=== PATIENT | male | born 1965 | race Caucasian/White ===

== ENCOUNTER 2017-05-05 19:24 | Emergency (ER) | payer OTHER ==
[~2017-05-05] VITALS: Ht 190.5 cm; Wt 122.5 kg
--- NOTE | ~2017-05-05 | CT4 ---
[facility] A Service of [facility] RADIOLOGY TEXT RESULTS PATIENT: ROHINI MURPHY LOCATION: SED : 69 UNIT #: [id number] AGE: [address]: Sherin Cox SEX: M ORDER DR: [id number] [address] [address] [id number] MR#: [id number] #: [id number] NAME: ROHINI MURPHY : 1965 SEX: M STUDY DATE/TIME: 05/05/2017 22:33 UNIT: SED ROOM: STUDY DESCRIPTION: CT Abd and Pelv Wo Cont Attending Physician: Sherin Cox Pa-C Ordering Physician: Staff Doctor Not On [facility] RE[facility] This report is preliminary unless electronic signature is present. EXAM CT abdomen and pelvis, noncontrast, HISTORY 52-year-old male in the ED complaining of 3-day history of mid abdomen pain. TECHNIQUE CT examination of the abdomen and pelvis was performed without oral or IV contrast, as requested. FINDINGS ABDOMEN FINDINGS: Multiple small gallstones are present within a nondistended gallbladder. There is no intrahepatic or extrahepatic bile duct dilatation. Liver, pancreas and spleen are normal in size and appearance without contrast. Minimal sigmoid diverticulosis. Small bowel and colon are otherwise normal in caliber and appearance, as imaged. Normal appendix. No radiopaque renal or urinary tract stone material. No evidence of urinary obstruction. Two or three tiny low-attenuation left renal lesions most likely representing cysts but incompletely characterized on this noncontrast study. Normal-caliber abdominal aorta. PELVIS FINDINGS: Urinary bladder and rectum are within normal limits. Mildly enlarged prostate. Tiny left inguinal hernia containing pelvic fat. Limited lung base images show no active disease in the lower chest. IMPRESSION 1. No acute abnormality within the abdomen or pelvis. 2. Tiny gallstones within nondistended gallbladder. No bile duct [facility] A Service of [facility] RADIOLOGY TEXT RESULTS PATIENT: ROHINI MURPHY LOCATION: SED : 69 UNIT #: [id number] AGE: [address]: Sherin Cox SEX: M ORDER DR: dilatation. 3. Minimal sigmoid diverticulosis. Dictated by... Tomasz Hickman M.D. THIS IS AN ELECTRONICALLY VERIFIED REPORT Tomasz Hickman M.D. at 05/06/2017 5:58 AM NANETTE/ana maría TD: 05/06/2017 03:39 JOB #: [id number] MEDICAL IMAGING REPORT Page 1 of 1
--- NOTE | ~2017-05-05 | EKG ---
PATIENT: ROHINI MURPHY UNIT #: [id number] Ventricular Rate: 91 BPM Atrial Rate: 91 BPM P-R Interval: 166 ms QRS Duration: 84 ms Q-T Interval: 400 ms QTC Calculation(Bezet): 492 ms P [place]: 4 degrees Calculated R [place]: -6 degrees Calculated T [place]: 96 degrees Diagnosis Line: Normal sinus rhythm Diagnosis Line: Minimal voltage criteria for LVH, may be normal Diagnosis Line: variant Diagnosis Line: Nonspecific ST and T wave abnormality Diagnosis Line: Prolonged QT Diagnosis Line: Abnormal ECG Diagnosis Line: When compared with ECG of 08-OCT-2014 02:27, Diagnosis Line: Minimal criteria for Anteroseptal infarct are no Diagnosis Line: longer Present Diagnosis Line: Nonspecific T wave abnormality now evident in Diagnosis Line: Lateral leads Diagnosis Line: Confirmed by DIANA CUMMINGS MD ([id number]) on Diagnosis Line: 05/08/2017 4:04:17 PM INTERPRETING MD: EMILIANO ALVAREZ
[~2017-05-05 19:24] MED LIST: BP MED PO; GLUCOTROL XL10 MG PO; LISINOPRIL PO; METFORMIN PO; NORVASC PO; PROMETHAZINE/CODEINE PO; ZITHROMAX PO
[2017-05-05] MEDS ORDERED: APRESOLINE (19:29)
[2017-05-05] MEDS ORDERED: BASAGLAR K100 UNIT/1 (19:30)
[2017-05-05] MEDS ORDERED: HUMULIN 70100 UNITS/ (19:30)
[2017-05-05 20:19] LABS: BASOPHIL% 0.2 % (0-2.5); EOSINOPHIL# 0.3 X10e3 (0-0.7); EOSINOPHIL% 4.2 % (0.0-7.0); HEMATOCRIT 36.1 % (38.0-50.0); HEMOGLOBIN 12.4 gm/dL (13.0-16.0); LYMPHOCYTE# 1.6 X10e3 (1.0-3.5); LYMPHOCYTE% 22.7 % (17.0-45.0); MEAN CELL VOLUME 86.4 FL (83-96); MEAN CORPUSCULAR HEMOGLOBIN 29.5 PG (28-34); MEAN CORPUSCULAR HGB CONC 34.2 g/dL (30-36); MEAN PLATELET VOLUME 9.5 FL (6.5-11.5); MONOCYTE# 0.5 X10e3 (0-1.0); MONOCYTE% 7.4 % (3.0-12.0); NEUTROPHIL# 4.7 X10e3 (1.5-7.1); NEUTROPHIL% 65.5 % (40-75); PLATELET COUNT 162 X10e3 (140-420); RED BLOOD COUNT 4.19 X10e (3.90-5.60); RED CELL DISTRIBUTION WIDTH 14.4 % (11.0-15.5); WHITE BLOOD COUNT 7.1 X10e3 (4.0-10.5)
[2017-05-05 20:20] LABS: DIFF IND NO
[2017-05-05 20:37] LABS: ALBUMIN SERUM 3.1 g/dL (3.5-5.0); ALKALINE PHOSPHATASE 55 U/L (32-92); ALT (SGPT) 22 U/L (10-40); AST (SGOT) 20 U/L (10-42); BILIRUBIN,TOTAL 0.4 mg/dL (0.2-2.0); BLOOD UREA NITROGEN 33 mg/dL (9-23); BUN/CREATININE RATIO 7.67; CALCIUM SERUM 8.6 mg/dL (8.4-10.2); CARBON DIOXIDE 27 mmol/L (22-31); CHLORIDE 105 mmol/L (100-111); CREATININE SERUM 4.3 mg/dL (0.6-1.4); GLUCOSE FASTING 204 mg/dL (70-110); LIPASE 34 U/L (22-51); POTASSIUM 4.2 mmol/L (3.5-5.1); PROTEIN TOTAL SERUM 6.7 g/dL (6.0-8.3); SODIUM 136 mmol/L (135-145)
[2017-05-05 20:38] LABS: BILIRUBIN, DIRECT <0.1 mg/dL (0.0-0.2); BILIRUBIN,INDIRECT 0.3 mg/dL (0.0-0.9)
== END 2017-05-05 23:33 | disposition left against medical advice (07) ==
LOC: SED 19:24
PROVIDERS: Physician Assistant
DX: I16.0 Hypertensive urgency (principal); I12.0 Hypertensive chronic kidney disease with stage 5 chronic kidney disease or end stage renal disease; E11.22 Type 2 diabetes mellitus with diabetic chronic kidney disease; N18.6 End stage renal disease; Z79.4 Long term (current) use of insulin; Z90.49 Acquired absence of other specified parts of digestive tract
CPT/HCPCS: 36415; 74176; 80048; 80076; 83690; 85025; 93005; 99291